=== PATIENT | female | born 1945 | race Caucasian/White ===

== ENCOUNTER 2023-02-25 15:37 | Outpatient (CLI) | payer MEDICARE, BC, SELFPAY | END 2023-02-25 15:38 | disposition home or self-care (01) | PROVIDERS: Visit Provider Internal Medicine | DX: R42 Dizziness and giddiness (principal); R11.2 Nausea with vomiting, unspecified | CPT/HCPCS: A0425; A0433 ==

== ENCOUNTER 2023-03-03 07:56 | Outpatient (CLI) | payer MEDICARE, BC, SELFPAY | END 2023-03-03 07:57 | disposition home or self-care (01) | LOC: AMB 03-31 10:06 | PROVIDERS: Visit Provider Family Medicine | DX: R51.9 Headache, unspecified (principal); R20.0 Anesthesia of skin; R42 Dizziness and giddiness | CPT/HCPCS: A0425; A0427 ==